=== PATIENT | male | born 1985 | race Caucasian/White ===

== ENCOUNTER 2018-01-06 10:07 | Emergency (ER) | payer BC ==
--- NOTE | 2018-01-06 10:15 | ED ---
Neurological HPI - HPI Summary HPI Summary: This pt is a 32 y/o male presenting to [facility] via EMS, accompanied by his school librarian Baudilio, for a witnessed seizure today. 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 Principal notes that students reported pt fell backwards against the wall with a head strike. EMS reports pt was unresponsive for a little bit and was postictal upon their arrival to the scene. EMS notes the pt does not remember his seizure and the last thing he remembers is teaching. Pt currently c/o lower back pain, sore neck, SOB, and tight chest. He states he feels like he "can't take a full breath." Additionally notes he feels like "I just ran a marathon." Denies head pain. The last time he had a seizure was a few years ago in front of a class in [place], [place]. He sustained 3 herniated discs at that time but did not have surgery. PMHx includes seizures x2, panic disorder, herniated discs, asthma as a child. Denies hx of HTN, but does not his blood pressure increases when he is nervous. He currently has no PCP. Pt takes Klonapin PRN for panic attacks. Allergic to Sulfa and prednisone (reaction is facial swelling and this was noticed the first time he had a seizure). Vital signs while in room: HR is 1252 bpm, BP 173/117, O2 sat is 98. Home Medications Medication Instructions Recorded Confirmed Type Venlafaxine EXT RELEASE CAP* 225 mg PO DAILY 01/06/18 01/06/18 History [Effexor Xr CAP*] clonazePAM TAB(*) [KlonoPIN TAB(*)] 0.5 mg PO BID 01/06/18 01/06/18 History - History of Current Complaint Stated Complaint: SEIZURE Hx Obtained From: Patient, EMS, Other: - school librarian, Baudilio Onset/Duration: Sudden Onset, Resolved Timing: Sudden Onset Current Severity: Moderate - lower back pain Number of Seizures: 1 Neurological Deficit Location: Generalized Character: Other: - seizure Seizure Character: Generalized Aggravating: Nothing Alleviating: Nothing Associated Signs and Symptoms: Positive: Loss of Consciousness, Seizure, Pain - lower back pain, Neck Pain/Stiffness - sore neck, Chest Pain - chest tightness, Shortness of Breath. Negative: Headache, Nausea/Vomiting, Fever Related Hx: Seizure - Allergy/Home Medications Allergies/Adverse Reactions: Allergies Allergy/AdvReac Type Severity Reaction Status Date / Time prednisone Allergy Itching Verified 01/06/18 11:04 Sulfa (Sulfonamide Allergy Rash Verified 01/06/18 11:04 Antibiotics) PMH/Surg Hx/FS Hx/Imm Hx Endocrine/Hematology History: Denies: Hx Diabetes Cardiovascular History: Denies: Hx Hypertension Musculoskeletal History: Reports: Other Musculoskeletal History - bulging spinal discs Neurological History: Reports: Hx Seizures Psychiatric History: Reports: Hx Panic Disorder - Surgical History Surgery Procedure, Year, and Place: none - Family History Known Family History: Positive: Hypertension - Mother with HTN Family History: Paternal uncle with sz - Social History Alcohol Use: Occasionally - Socially Substance Use Type: Reports: None Smoking Status (MU): Never Smoked Tobacco Review of Systems Negative: Fever, Chills Cardiovascular: Other - chest is tight Positive: Shortness Of Breath Musculoskeletal: Other - back pain, sore neck Neurological: Other - POS: seizure. NEG: head pain Negative: Headache All Other Systems Reviewed And Are Negative: Yes Physical Exam - Summary Physical Exam Summary: Appearance: Well-appearing, moderate pain distress, well-nourished Skin: Warm, color reflects adequate perfusion, dry Head: Normal Head/Face inspection, atraumatic Eyes: Conjunctiva clear. Pinpoint pupils. ENT: Normal inspection Neck: Supple, no nodes, no JVD Respiratory: Lungs clear, normal breath sounds, no respiratory distress Cardio: Tachycardic, No murmur, pulses normal, brisk capillary refill Abdomen: Soft, nontender Bowel sounds: Present Musculoskeletal: Strength Intact/ROM intact, no calf tenderness, no edema. Psychological: Normal Neuro: A&Ox3, CN II-XII intact, motor function 5/5, sensation intact, cerebellar normal Triage Information Reviewed: Yes Vital Signs On Initial Exam: Initial Vitals Temp Pulse Resp BP Pulse Ox 98.5 F 130 18 173/117 98 01/06/18 10:09 01/06/18 10:09 01/06/18 10:09 01/06/18 10:01/06/18 10:09 Vital Signs Reviewed: Yes Diagnostics - Laboratory Result Diagrams: 01/06/18 10:29 01/06/18 10:29 Lab Statement: Any lab studies that have been ordered have been reviewed, and results considered in the medical decision making process. - Radiology Chest XR Xray Interpretation: No Acute Changes - IMPRESSION: No active cardiopulmonary disease is noted. Dr. Rolon has reviewed this report. Radiology Interpretation Completed By: Radiologist - CT Brain CT CT Interpretation: No Acute Changes - IMPRESSION: No evidence for acute intracranial abnormality. Dr. Rolon has reviewed this report. CT Interpretation Completed By: Radiologist Cervical spine CT CT Interpretation: No Acute Changes - IMPRESSION: Mild degenerative disc disease. No acute osseous injury to the cervical spine. Dr. Rolon has reviewed this report. CT Interpretation Completed By: Radiologist Lumbar spine CT CT Interpretation: Positive (See Comments) - IMPRESSION: 1. Acute/subacute compression fractures of T12 and L1 without osseous retropulsion. 2. Degenerative disc disease with disc bulging along the lower lumbar spine resulting in mild narrowing of central canal at L3-L4 and L4-L5. Dr. Rolon has reviewed this report. CT Interpretation Completed By: Radiologist - EKG 10:28 Cardiac Rate: NL - at 118 bpm EKG Rhythm: Sinus Tachycardia EKG Interpretation: nml AV/IV CT. Borderline QTc 473. Left axis is -7 EKG Comparison: Other - no prior to compare Re-Evaluation - Re-Evaluation First Eval Re-Evaluation Time: 11:40 Change: Unchanged Comment: Pt still with lower back pain. Pending lumbar CT report. Second Eval Re-Evaluation Time: 14:13 Comment: I reviewed the CT results of compression fracture of T12 and L1 without retropulsion with the pt. Third Eval Re-Evaluation Time: 14:57 Change: Unchanged Comment: Pt is still tachycardic. EEG has been completed. Dr. Fisher, neurologist , in with pt. Fourth Eval Re-Evaluation Time: 15:43 Comment: I discussed discharge instructions with the pt. He understands and agrees. Pt reports he would prefer not to take Naproxen. Fifth Eval Re-Evaluation Time: 15:53 Comment: I reviewed with the pt Dr. Fisher's recommendation to not take Tramadol as it will decrease his seizure threshold. Course/Dx - Course Course Of Treatment: Pt medications reviewed this visit. Allergies noted. High blood pressure noted. 32 y/o male, with hx of seizures x2, presents to the ED with a witnessed seizure today. ED provider is aware of lactic acid of 4.2 at 11 :00. Chest XR is negative. Brain CT is negative. Cervical spine CT shows mild degenerative disc disease. Lumbar spine CT reveals acute/subacute compression fractures of T12 and L1 without osseous retropulsion. Consulting Dr. Arita at this time. Hydrating the pt for elevated CK and lactic acid. Evaluating if liver function test abnormalities are new or old. Discussed pt care with Dr. Arita, neurosurgeon, and reports no further evaluation is needed at this time. Pt can follow up as an outpatient and pain control. Dr. Fisher, neurologist, consulted with the pt. Dr. Fisher recommends to decrease Venlafaxine to 150 mg daily and keep Klonopin 0.5 mg BID. Pt has an established appointment with psych in [place] on 01/16/18. Dr. Fisher reports pt has 2 provoking factors, one of them being sleep deprivation. He has placed pt in driving restriction and pt is NOT to drive for 90 days, unless he goes to the [facility] and reports provoking factor. Pt is not to bathe or swim independently either. Dr. Fisher's office will call the pt for a follow up in 3-4 weeks. [15: 52] I spoke with Dr. Fisher, neurologist, who reports pt cannot definitely take Tramadol because it will decrease seizure threshold. - Diagnoses Provider Diagnoses: Seizure, Compression fracture of T12 vertebra, Compression fracture of L1 lumbar vertebra, Elevated lactic acid level, Elevated liver function tests, Elevated CK, Elevated blood pressure reading without diagnosis of hypertension - Physician Notifications Discussed Care Of Patient With: Thony Arita Time Discussed With Above Provider: 13:00 Instructed by Provider To: Other - Discussed pt care with Dr. Arita, neurosurgeon, and reports no further evaluation is needed at this time. Pt can follow up as an outpatient and pain control. [13:05] I discussed with Dr. Fisher , neurologist, who recommends EEG and he will evaluate the pt in the ED Discharge - Sign-Out/Discharge Documenting (check all that apply): Patient Departure - Discharge to home - Discharge Plan Condition: Stable Disposition: HOME Prescriptions: Naproxen [Naprosyn 500 mg tab] 500 mg PO BID PRN #30 tablet PRN Reason: Pain Patient Education Materials: Vertebral Compression Fracture (ED), Epilepsy (ED) Forms: *Gen. Provider Communication Referrals: [facility] [Outside] [facility] [Outside] Jose F Fisher MD [Medical Doctor] - 2 Weeks Thony Arita MD [Medical Doctor] - 1 Week Additional Instructions: We have given you a copy of your labs and Chest xray and CT studies. You will need definite follow up regarding your elevated liver function tests. You should avoid alcohol until these enzymes are re-tested. You also will need definite follow up with neurology. They will contact you with an appointment in 2-4 weeks. YOU MY NOT DRIVE FOR 90 DAYS. YOU ALSO MAY NOT BATHE OR SWIM ALONE FOR [address] Fisher is the neurologist, and he wants you to decrease your Venlafaxine to 150mg daily. He does not recommend anti-seizure medications at this time. He also wants you to take your klonopin 0.5mg daily. Keep your appointment with psychiatry in [place] on 01/16/18, and bring the labs and xrays and these discharge papers to that appointment. You will also need definite follow up with Dr. Arita for your compression fractures. We have prescribed naproxen that you should take twice a day for your pain. Avoid tylenol (acetaminophen) while your liver enzymes are elevated. DR FISHER DEFINITELY DOES NOT WANT YOU TO TAKE TRAMADOL (ULTRAM) BECAUSE IT WILL LOWER YOUR SEIZURE THRESHHOLD. You need to call our care connections clinic of [facility] to have follow up this week , until you get established with a primary care doctor in this area. They will help with re-checking your liver enzymes and pain control and coordinating your appointments and follow up. Call the physician referral number to get established with a primary care provider. Return to the ER if you have any new or worsening symptoms. - Attestation Statements Document Initiated by Kaminiibjens: Yes Documenting Scribe: Violeta Aguiar Provider For Whom Dimple is Documenting (Include Credential): Dr. Kaila Rolon MD Scribe Attestation: Violeta Simmons, scribed for Dr. Kaila Rolon MD on 01/06/18 at 1552.
[2018-01-06] MEDS ORDERED: NS 0.9% 1000 ML* 2,000 ML IV SCH (10:30)
[2018-01-06] MEDS ORDERED: Ketorolac INJ* 30 MG/ML 1 ML VIAL IV PUSH ONE (10:37)
[2018-01-06 10:39] LABS: ABS Basophils 0 10^3/ul (0-0.2); ABS Eosinophils 0.2 10^3/ul (0-0.6); ABS Lymphocytes 1.5 10^3/ul (1.0-4.8); ABS Monocytes 0.3 10^3/ul (0-0.8); ABS Neutrophils 3.1 10^3/ul (1.5-7.7); ABS Nucleated RBC 0 10^3/ul; Hematocrit 38 % (42-52); Hemoglobin 13.1 g/dl (14.0-18.0); Lymphocyte % 29.8 % (25-47); Mean Corpuscular HGB Conc 34 g/dl (31-36); Mean Corpuscular Hemoglobin 29 pg (27-31); Mean Corpuscular Volume 86 fL (80-94); Mean Platelet Volume 7.4 um3 (7.4-10.4); Nucleated Red Blood Cells % 0.6; Platelet Count 175 10^3/ul (150-450); Red Blood Count 4.44 10^6/ul (4.00-5.40); Red Cell Distribution Width 14 % (10.5-15); White Blood Count 5.1 10^3/ul (3.5-10.8)
[2018-01-06 10:46] LABS: INR 0.91 (0.77-1.02)
[2018-01-06 10:54] LABS: EGFR Non-African American 73.4 (>60)
--- NOTE | 2018-01-06 11:09 | RAD ---
INDICATION: Seizure, head injury. COMPARISON: There are no relevant prior studies available for comparison. TECHNIQUE: Contiguous axial sections of the brain were obtained from the skull base to the vertex without contrast. FINDINGS: The ventricles, cisterns and sulci are within normal limits. No significant focal abnormality or mass effect is seen. There is no evidence for hemorrhage. No significant focal osseous abnormality is seen. The visualized portion of the paranasal sinuses and mastoid air cells appear clear. IMPRESSION: NO EVIDENCE FOR ACUTE INTRACRANIAL ABNORMALITY.
--- NOTE | 2018-01-06 11:10 | RAD ---
HISTORY: seizure, struck head, pain COMPARISONS: None TECHNIQUE: Multiple contiguous axial CT scans were obtained of the cervical spine without intravenous contrast, with coronal and sagittal multiplanar reformations. FINDINGS: BRAIN: The visualized brain is unremarkable CENTRAL CANAL: Evaluation of the central canal is limited on CT technique; however, there is no obvious canalicular mass or epidural hemorrhage. ALIGNMENT: The alignment is normal, without subluxation or dislocation. VERTEBRAL BODIES: The odontoid process is intact. The atlantoaxial intervals are symmetric. The vertebral bodies are normal in attenuation, without fracture. JOINTS: There is no subluxation or dislocation. MUSCULATURE: Unremarkable INTERVERTEBRAL DISCS: There is mild diffuse loss of intervertebral disc height. AXIAL IMAGES: C2-C3: There is no osseous neural foraminal narrowing or central canal stenosis. C3-C4: There is no osseous neural foraminal narrowing or central canal stenosis. C4-C5: There is no osseous neural foraminal narrowing or central canal stenosis. C5-C6: There is no osseous neural foraminal narrowing or central canal stenosis. C6-C7: There is no osseous neural foraminal narrowing or central canal stenosis. C7-T1: There is no osseous neural foraminal narrowing or central canal stenosis. SOFT TISSUES: The visualized soft tissues of the neck are unremarkable. The prevertebral fat stripe is preserved. OTHER: None. IMPRESSION: MILD DEGENERATIVE DISC DISEASE. NO ACUTE OSSEOUS INJURY TO THE CERVICAL SPINE.
--- NOTE | 2018-01-06 11:12 | RAD ---
HISTORY: pain s/p seizure fall this am,hx herniated discs COMPARISONS: None TECHNIQUE: Multiple contiguous axial CT scans were obtained of the lumbar spine without intravenous contrast, with coronal and sagittal multiplanar reformations. The bones FINDINGS: SPINAL CANAL: Evaluation of the central canal is limited on CT technique; however, there is no obvious canalicular mass or epidural hemorrhage. ALIGNMENT: The alignment is normal. VERTEBRAL BODIES: There is mild depression of the superior endplates of T12 and L1 with linear high attenuation and suggestive of acute/subacute compression fractures without osseous retropulsion. JOINTS: There is no subluxation or dislocation. MUSCULATURE: Unremarkable INTERVERTEBRAL DISCS: There is mild diffuse loss of intervertebral disc height throughout the spine. AXIAL IMAGES: T12-L1: There is no osseous neural foraminal narrowing or central canal stenosis. L1-L2: There is no osseous neural foraminal narrowing or central canal stenosis. L2-L3: There is no osseous neural foraminal narrowing or central canal stenosis. L3-L4: There is a broad-based disc bulge. There is mild narrowing of the central canal. L4-L5: There is a broad-based disc bulge with mild narrowing of the central canal. L5-S1: There is a broad-based disc bulge with the probable central disc protrusion. There is no osseous neural foraminal narrowing or central canal stenosis. SOFT TISSUES: The visualized soft tissues of the abdomen are unremarkable. OTHER: None IMPRESSION: 1. ACUTE/SUBACUTE COMPRESSION FRACTURES OF T12 AND L1 WITHOUT OSSEOUS RETROPULSION. 2. DEGENERATIVE DISC DISEASE WITH DISC BULGING ALONG THE LOWER LUMBAR SPINE RESULTING IN MILD NARROWING OF CENTRAL CANAL AT L3-L4 AND L4-L5.
--- NOTE | 2018-01-06 11:34 | RAD ---
Indication: Shortness of breath. Single frontal view of the chest performed at 1120 hours was reviewed. No prior study is available for comparison. No mediastinal shift is noted. Heart is of normal size and configuration. Lung roche appear clear. IMPRESSION: NO ACTIVE CARDIOPULMONARY DISEASE IS NOTED.
[2018-01-06 16:02] VITALS: BP 149/93
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
--- NOTE | 2018-01-07 11:19 | EEG ---
ELECTROENCEPHALOGRAPHY: DATE OF SERVICE: 01/06/18 DATE READ: 01/06/18 REFERRING PHYSICIAN: Dr. Kaila Rolon. DURATION OF STUDY: 1418 - 1438. MEDICATIONS: 1. Venlafaxine 225 mg. 2. Klonopin. 3. Toradol. 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 This EEG was obtained to evaluate for epileptiform abnorm alities. CLINICAL STATE: Awake. REPORT: The waking background showed appropriate organization with clearly defined anterior-posterio r voltage and frequency gradients. There was a well-defined posterior dominant rhythm of 9 Hz, which was symmetrical and showed normal reactivity. Anteriorly, there was an expected pattern of lower vo ltage, irregular, mixed faster frequency. Hyperventilation and photic stimulation were not performed . Throughout the recording, there were no epileptiform abnormalities. CLINICAL IMPRESSION: This is a normal waking EEG. There were no epileptiform abnormalities. A norm al interictal EEG does not exclude nor support the diagnosis of epilepsy. Clinical correlation is re commended. [id number]/[facility] #: [id number]
== END 2018-01-06 16:01 | disposition home or self-care (01) ==
LOC: ED 10:07
DX: R56.9 Unspecified convulsions (principal); S22.089A Unspecified fracture of T11-T12 vertebra, initial encounter for closed fracture; S32.019A Unspecified fracture of first lumbar vertebra, initial encounter for closed fracture; M54.5 Low back pain; R55 Syncope and collapse; R03.0 Elevated blood-pressure reading, without diagnosis of hypertension; R79.89 Other specified abnormal findings of blood chemistry; X58.XXXA Exposure to other specified factors, initial encounter; Y92.9 Unspecified place or not applicable
CPT/HCPCS: 36415; 70450; 71045; 72125; 72131; 80053; 80074; 80320; 82550; 83605; 83735; 84443; 84484; 85025; 85610; 85730; 93005; 95816; 96374; 99283; G0480; J1885

== ENCOUNTER 2018-08-13 15:14 | Emergency (ER) | payer BC ==
--- NOTE | 2018-08-13 20:19 | ED ---
Lower Extremity - HPI Summary HPI Summary: This patient is a 32 year old M presenting to [facility] with a chief complaint of bilateral pain, redness and swelling from the toes to the ankles, associated with gout for the past week and a half. Symptoms spread from his toes to his ankles. He reports recent inability to walk a few days ago due to pain that is currently resolved. Pain rated 7/10 upon triage. Patient denies CP, SOB, abdominal, and nausea. Denies known recent tick bites. Patient has seen his PCP for these symptoms who provided Naproxen, that has not provided any relief. Recent lab work reviewed, revealing elevated Uric acid levels. Medications include lamictal, Effexor, clonazepam. - History of Current Complaint Chief Complaint: EDGeneral Stated Complaint: RT FT SWELLING AND PAIN PER PT Time Seen by Provider: 08/13/18 20:09 Hx Obtained From: Patient Mechanism Of Injury: Unknown Onset/Duration: Weeks Pain Intensity: 7 Pain Scale Used: 0-10 Numeric Timing: Constant Location: Is Discrete @ - bilateral toes to ankles Associated Signs And Symptoms: Positive: Swelling, Redness. Negative: Fever Aggravating Factor(s): Standing, Ambulation Able to Bear Weight: Yes - Allergies/Home Medications Allergies/Adverse Reactions: Allergies Allergy/AdvReac Type Severity Reaction Status Date / Time amoxicillin [From Augmentin] Allergy Unknown Verified 08/13/18 15:41 Reaction Details clavulanic acid Allergy Unknown Verified 08/13/18 15:41 [From Augmentin] Reaction Details prednisone Allergy Itching Verified 08/13/18 15:41 Sulfa (Sulfonamide Allergy Rash Verified 08/13/18 15:41 Antibiotics) Home Medications: Home Medications Naproxen [Naprosyn 500 mg tab] 500 mg PO BID 08/13/18 [History Confirmed ] Venlafaxine EXT RELEASE CAP* [Effexor Xr CAP*] 225 mg PO DAILY 08/13/18 [ History Confirmed 08/13/18] Zolpidem TAB* [Ambien*] 5 - 10 mg PO BEDTIME PRN 08/13/18 [History Confirmed ] clonazePAM TAB(*) [Klonopin TAB(*)] 1 mg PO TID PRN 08/13/18 [History Confirmed 08/13/18] lamoTRIgine TAB(*) [Lamictal TAB(*)] 50 mg PO DAILY 08/13/18 [History Confirmed 08/13/18] PMH/Surg Hx/FS Hx/Imm Hx Endocrine/Hematology History: Denies: Hx Diabetes Cardiovascular History: Denies: Hx Hypertension, Hx Pacemaker/ICD History: Denies: Hx Renal Disease Musculoskeletal History: Reports: Other Musculoskeletal History - bulging spinal discs Sensory History: Denies: Hx Hearing Aid Neurological History: Reports: Hx Seizures Psychiatric History: Reports: Hx Panic Disorder - Surgical History Surgery Procedure, Year, and Place: none Infectious Disease History: No Infectious Disease History: Denies: Traveled Outside the [place] in Last 30 Days - Family History Known Family History: Positive: Hypertension - Mother with HTN Family History: Paternal uncle with sz - Social History Alcohol Use: Occasionally - Socially Hx Substance Use: No Substance Use Type: Reports: None Smoking Status (MU): Never Smoked Tobacco Review of Systems Negative: Chest Pain Negative: Shortness Of Breath Negative: Abdominal Pain, Nausea Positive: Myalgia, Decreased ROM, Edema All Other Systems Reviewed And Are Negative: Yes Physical Exam - Summary Physical Exam Summary: Appearance: well appearing, no pain distress Skin: warm, dry, reflects adequate perfusion Head/face: normal Eyes: EOMI, EM[place] ENT: mucous membranes moist Neck: supple, non-tender Respiratory: CTA, breath sounds present Cardiovascular: RRR, pulses symmetrical Abdomen: non-tender, soft Bowel Sounds: present Musculoskeletal: erythema and pitting edema of the right ankle, limited plantarflexion of the right due to pain Neuro: normal, sensory motor intact, A&Ox3 Triage Information Reviewed: Yes Vital Signs On Initial Exam: Initial Vitals Temp Pulse Resp BP Pulse Ox 97.1 F 98 16 126/78 99 08/13/18 15:21 08/13/18 15:21 08/13/18 15:21 08/13/18 15:21 08/13/18 15:21 Vital Signs Reviewed: Yes Diagnostics - Vital Signs Vital Signs Temp Pulse Resp BP Pulse Ox 08/13/18 18:06 97.2 F 80 16 114/79 97 08/13/18 15:21 97.1 F 98 16 126/78 99 - Laboratory Lab Statement: Any lab studies that have been ordered have been reviewed, and results considered in the medical decision making process. Lower Extremity Course/Dx - Course Course Of Treatment: Nurse's notes reviewed. Patient recently diagnosed with hyperuricemic gout that began in both toes. He now is experiencing pain and redness in the right ankle also with some swelling. He is only on Naprosyn. He was given 1.2 mg of colchicine here and Decadron. Uric acid on recent labs was high. He will follow up closely with his primary care physician and continue colchicine. - Diagnoses Differential Diagnosis/HQI/PQRI: Positive: Arthritis, Gout, Infection Provider Diagnoses: Gouty arthritis Discharge - Sign-Out/Discharge Documenting (check all that apply): Patient Departure - discharge Patient Received Moderate/Deep Sedation with Procedure: No - Discharge Plan Condition: Stable Disposition: HOME Prescriptions: Colchicine* [Colcrys*] 0.6 mg PO TID PRN #12 tab PRN Reason: gout pain Patient Education Materials: Gout (ED) Referrals: Leti Hdz [employer]PERVISOR [Primary Care Provider] - Additional Instructions: Rest, ice, elevate and Martínez wrap for swelling. Continue Naprosyn. HEENT with it. Stop colchicine if you develop diarrhea. Call your doctor first thing tomorrow to schedule prompt follow-up. Return if worse, new symptoms or other concerns. - Billing Disposition and Condition Condition: STABLE Disposition: Home - Attestation Statements Document Initiated by Kaminiibe: Yes Documenting Scribe: Sarah العلي Provider For Whom Dimple is Documenting (Include Credential): Mark Vee MD Scribe Attestation: ISarah, scribed for Mark Vee MD on 08/14/18 at 0326. Scribe Documentation Reviewed: Yes Provider Attestation: The documentation as recorded by the Sarah morejon accurately reflects the service I personally performed and the decisions made by me, Mark Vee MD Status of Scribjens Document: Viewed
[2018-08-13] MEDS ORDERED: Dexamethasone IV* 4 MG/ML 1 ML (4 MG) IM ONE (20:26)
[2018-08-13] MEDS ORDERED: Colchicine* 0.6 MG TAB PO ONE (20:35)
[2018-08-13 20:55] VITALS: BP 120/83
[2018-08-14] MEDS ORDERED: Colchicine* 0.6 MG TAB PO ONE (20:21)
[2018-08-16 00:13] LABS: B garinii/B afzelii PCR Negative (Negative); B mayonii PCR Negative (Negative)
== END 2018-08-13 20:54 | disposition home or self-care (01) ==
LOC: ED 15:14
DX: M10.9 Gout, unspecified (principal)
CPT/HCPCS: 87476; 87798; 96372; 99283; J1100

== ENCOUNTER 2018-12-28 10:28 | Emergency (ER) | payer BC ==
[2018-12-28] MEDS ORDERED: Ketorolac *IM* INJ* 60 MG/2 ML VIAL IM ONE (11:02)
--- NOTE | 2018-12-28 11:06 | ED ---
Lower Extremity - HPI Summary HPI Summary: This pt is a 33 Y/O M presenting to [facility] with a CC of R ankle pain that is currently rated a 10/10 and started on 12/26/18. 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 He states that his family has a Hx of Lupus and Gout and is worried that he might have a flare up of that. He states that he is currently out of it, has been sweating while sleeping, and has been unable to ambulate. He states that he cannot walk or move his ankle without an intense increase in pain. He states that the pain feels like someone is trying to saw my R foot off. He has no alleviating factors. Patient did take his colchicine at home for his gout with some relief. Medications reviewed - History of Current Complaint Chief Complaint: EDExtremityLower Stated Complaint: POSS BLOOD CLOT IN RIGHT LEG PER PT Time Seen by Provider: 12/28/18 10:51 Hx Obtained From: Patient Mechanism Of Injury: Other - none Onset of Pain: Immediate Onset/Duration: Still Present - 2 Severity Initially: Severe Severity Currently: Severe Pain Intensity: 10 Pain Scale Used: 0-10 Numeric Timing: Constant Location: Is Discrete @ - R ankle, R calf tightness Character Of Pain: Sharp Associated Signs And Symptoms: Positive: Negative - headaches, penile discharge , N/V, SOB, CP, and chills., Other - POSITIVE: R ankle tenderness, decreased ROM due to pain. Negative: Fever Aggravating Factor(s): Standing, Ambulation, Weight Bearing Alleviating Factor(s): Nothing Able to Bear Weight: No - Pt stated that he has been crawling around his house - Allergies/Home Medications Allergies/Adverse Reactions: Allergies Allergy/AdvReac Type Severity Reaction Status Date / Time amoxicillin [From Augmentin] Allergy Unknown Verified 12/28/18 10:48 Reaction Details clavulanic acid Allergy Unknown Verified 12/28/18 10:48 [From Augmentin] Reaction Details prednisone Allergy Itching Verified 12/28/18 10:48 Sulfa (Sulfonamide Allergy Rash Verified 12/28/18 10:48 Antibiotics) PMH/Surg Hx/FS Hx/Imm Hx Previously Healthy: Yes Endocrine/Hematology History: Denies: Hx Diabetes Cardiovascular History: Denies: Hx Hypertension, Hx Pacemaker/ICD History: Denies: Hx Renal Disease Musculoskeletal History: Reports: Other Musculoskeletal History - bulging spinal discs Sensory History: Denies: Hx Hearing Aid Neurological History: Reports: Hx Seizures Psychiatric History: Reports: Hx Panic Disorder - Surgical History Surgical History: None Surgery Procedure, Year, and Place: none Infectious Disease History: No Infectious Disease History: Denies: Traveled Outside the [place] in Last 30 Days - Family History Known Family History: Positive: Hypertension - Mother with HTN, Blood Disorder - Gout, Lupus Family History: Paternal uncle with sz - Social History Occupation: Employed Full-time Lives: With Family Alcohol Use: Occasionally - Socially Hx Substance Use: No Substance Use Type: Reports: None Hx Tobacco Use: No Smoking Status (MU): Never Smoked Tobacco Review of Systems Negative: Fever, Chills Negative: Chest Pain Negative: Shortness Of Breath Negative: Vomiting, Nausea Negative: discharge Positive: Decreased ROM - R ankle , Other - R ankle and calf pain Negative: Headache All Other Systems Reviewed And Are Negative: Yes Physical Exam - Summary Physical Exam Summary: Constitutional: Well-developed, Well-nourished, Alert. (-) Distressed Skin: Warm, Dry HENT: Normocephalic; Atraumatic Eyes: Conjunctiva normal Neck: Musculoskeletal ROM normal neck. (-) JVD, (-) Stridor, (-) Tracheal deviation Cardio: Rhythm regular, rate normal, Heart sounds normal; Intact distal pulses; The pedal pulses are 2+ and symmetric. Radial pulses are 2+ and symmetric. (-) Murmur Pulmonary/Chest wall: Effort normal. (-) Respiratory distress, (-) Wheezes, (-) Rales Abd: Soft, (-) tenderness, (-) Distension, (-) Guarding, (-) Rebound Musculoskeletal: (-) Edema, R ankle is swollen with no red or warmth, can move his ankle but is limited, Negative tompson test, DP/RP 2+ Lymph: (-) Cervical adenopathy Neuro: Alert, Oriented x3 Psych: Mood and affect Normal Triage Information Reviewed: Yes Vital Signs On Initial Exam: Initial Vitals Temp Pulse Resp BP Pulse Ox 98.3 F 100 16 160/96 99 12/28/18 10:43 12/28/18 10:43 12/28/18 10:43 12/28/18 10:43 12/28/18 10:43 Vital Signs Reviewed: Yes Diagnostics - Vital Signs Vital Signs Temp Pulse Resp BP Pulse Ox 12/28/18 10:43 98.3 F 100 16 160/96 99 - Laboratory Result Diagrams: 12/28/18 11:27 12/28/18 11:27 Lab Statement: Any lab studies that have been ordered have been reviewed, and results considered in the medical decision making process. - Radiology Ankle X-Ray Radiology Interpretation Completed By: Radiologist Summary of Radiographic Findings: NO RADIOGRAPHICALLY APPARENT ACUTE ABNORMALITY OF THE RIGHT ANKLE. ED physician has reviewed this report. Re-Evaluation - Re-Evaluation First Eval Re-Evaluation Time: 12:11 Comment: Offered US even though I do not believe it is a DVT. The pt declined. He states that he is feeling much better after the IM toradol. Lower Extremity Course/Dx - Course Course Of Treatment: Patient is here with pain, swelling at the right ankle. Patient has a history of gout with a high uric acid level here. Patient has a normal white count. Patient is able to range his ankle making septic arthritis unlikely. Patient was given a shot of IM Toradol with vast improvement in symptoms. Patient does not have any swelling or pain in his calf. Patient was given a dose of Decadron here and discharged with a dose for tomorrow. Patient was encouraged to start taking Motrin every 6 hours. - Diagnoses Provider Diagnoses: Gout Discharge ED - Sign-Out/Discharge Documenting (check all that apply): Patient Departure - discharge Patient Received Moderate/Deep Sedation with Procedure: No - Discharge Plan Condition: Stable Disposition: HOME Prescriptions: Dexamethasone TAB* [Decadron TAB*] 4 mg PO ONCE #3 tab Patient Education Materials: Crutch Instructions (ED), Gout (ED) Referrals: Leti Hdz NP [Primary Care Provider] - 2 Days Additional Instructions: 600 mgs Ibuprofen every 6 hours. Return to the emergency department for any new or worsening symptoms. Follow up with your primary care provider in 1-3 days. Use crutches as needed for mobility purposes. Take the prescribed medication as directed. - Billing Disposition and Condition Condition: STABLE Disposition: Home - Attestation Statements Document Initiated by Scribe: Yes Documenting Scribe: Archie Patino Provider For Whom Scribe is Documenting (Include Credential): Mariano Ann MD Scribe Attestation: Archie Simmons, scribed for Mariano Ann MD on 12/28/18 at 1222. Scribe Documentation Reviewed: Yes Provider Attestation: The documentation as recorded by the albertoibArchie colindres accurately reflects the service I personally performed and the decisions made by me, Mariano Ann MD Status of Scribe Document: Viewed
[2018-12-28 11:35] LABS: ABS Eosinophils 0.1 10^3/ul (0-0.6); ABS Lymphocytes 1.8 10^3/ul (1.0-4.8); ABS Neutrophils 3.5 10^3/ul (1.5-7.7); Eosinophil % 1.2 %; Hematocrit 37 % (42-52); Hemoglobin 12.5 g/dL (14.0-18.0); Lymphocyte % 28.5 %; Mean Corpuscular HGB Conc 34 g/dL (31-36); Mean Corpuscular Hemoglobin 30 pg (27-31); Mean Corpuscular Volume 88 fL (80-94); Mean Platelet Volume 6.9 fL (7.4-10.4); Nucleated Red Blood Cells % 0.1; Platelet Count 151 10^3/uL (150-450); Red Blood Count 4.16 10^6 /uL (4.18-5.48); Red Cell Distribution Width 16 % (10-15); White Blood Count 6.4 10^3/uL (3.5-10.8)
[2018-12-28 11:51] LABS: Albumin 4.4 g/dL (3.2-5.2); Albumin/Globulin Ratio 1.7 (1-3); BUN/Creatinine Ratio 9.1 (8-20); C Reactive Protein 69.46 mg/L (<8.01); EGFR Non-African American 87.6 (>60); Globulin 2.6 g/dL (2-4); Potassium 3.6 mmol/L (3.5-5.0); Total Bilirubin 1.5 mg/dL (0.2-1.0); Uric Acid 9.3 mg/dL (4.4-7.6)
[2018-12-28] MEDS ORDERED: Dexamethasone TAB* 4 MG PO ONE (12:11)
[2018-12-28 12:29] VITALS: BP 161/105
[2018-12-28 12:56] LABS: Erythrocyte Sed Rate 31 mm/Hr (0-14)
== END 2018-12-28 12:27 | disposition home or self-care (01) ==
LOC: ED 10:28
DX: M10.071 Idiopathic gout, right ankle and foot (principal); Z88.1 Allergy status to other antibiotic agents; Z88.0 Allergy status to penicillin; Z88.2 Allergy status to sulfonamides; Z88.8 Allergy status to other drugs, medicaments and biological substances
CPT/HCPCS: 36415; 80053; 84550; 85025; 85652; 86140; 96372; 99282; J1885; J8540

== ENCOUNTER 2019-02-12 15:35 | Emergency (ER) | payer BC ==
[2019-02-12 16:16] LABS: ABS Lymphocytes 0.5 10^3/ul (1.0-4.8); ABS Monocytes 0.3 10^3/ul (0-0.8); ABS Neutrophils 3.9 10^3/ul (1.5-7.7); Eosinophil % 0.1 %; Hematocrit 34 % (42-52); Hemoglobin 11.8 g/dL (14.0-18.0); Mean Corpuscular HGB Conc 35 g/dL (31-36); Mean Corpuscular Hemoglobin 32 pg (27-31); Mean Corpuscular Volume 91 fL (80-94); Mean Platelet Volume 7.4 fL (7.4-10.4); Nucleated Red Blood Cells % 0.1; Platelet Count 197 10^3/uL (150-450); Red Blood Count 3.74 10^6 /uL (4.18-5.48); Red Cell Distribution Width 16 % (10-15); White Blood Count 4.8 10^3/uL (3.5-10.8)
[2019-02-12] MEDS ORDERED: NS 0.9% 1000 ML** 1,000 ML IV ONE (16:19)
[2019-02-12 16:37] LABS: INR 1.09 (0.82-1.09)
[2019-02-12 16:39] LABS: ALT 97 U/L (7-52); AST 77 U/L (13-39); Albumin 4.7 g/dL (3.2-5.2); Albumin/Globulin Ratio 1.7 (1-3); Alkaline Phosphatase 78 U/L (34-104); Anion Gap 9 mmol/L (2-11); BUN/Creatinine Ratio 10.1 (8-20); Blood Urea Nitrogen 7 mg/dL (6-24); CO2 Carbon Dioxide 27 mmol/L (22-32); Calcium 9.9 mg/dL (8.6-10.3); Chloride 104 mmol/L (101-111); EGFR African American 160.8 (>60); EGFR Non-African American 132.9 (>60); Globulin 2.8 g/dL (2-4); Glucose 110 mg/dL (70-100); Magnesium 2.2 mg/dL (1.9-2.7); Potassium 4.2 mmol/L (3.5-5.0); Sodium 140 mmol/L (135-145); Total Protein 7.5 g/dL (6.4-8.9)
[2019-02-12 17:08] LABS: Alcohol < 10 mg/dL (<10)
[2019-02-12 17:19] LABS: Urine Appearance Clear; Urine Bilirubin Negative (Negative); Urine Blood Negative (Negative); Urine Color Yellow; Urine Glucose Negative (Negative); Urine Ketones Trace (Negative); Urine Nitrite Negative (Negative); Urine Protein Negative (Negative); Urine Specific Gravity 1.005 (1.010-1.030); Urine Urobilinogen Negative (Negative)
[2019-02-12 17:37] LABS: Creatine Kinase 111 U/L (10-223)
[2019-02-12 17:38] LABS: Urine Benzodiazepine Screen Presumptive Positive (None Detect); Urine Opiates Screen None Detected (None Detect)
[2019-02-12] MEDS ORDERED: carBAMazepine TAB(*) 200 MG PO ONE (17:52)
--- NOTE | 2019-02-12 18:03 | ED ---
Seizure - HPI Summary HPI Summary: Pt presents to the ED by way of EMS with altered mental status. Per EMS and staff at [facility], patient had passed out in the classroom and subsequently had CPR, however this is unclear if this really happened. Patient does remember having CPR, but by a child for only approximately 20 seconds. It does not appear that EMS did CPR. Patient denies any drug or alcohol use. Pt states he has been under a fair amount of stress recently, has had this happen in the past when he has been under stress. He states he recalls the entire incident, but does not give full details as pt is extremely confused and appears fatigued. Denies any physical sxs other than fatigue. He states he knows when he is about to have a seizure, although has "only had 2 in my life." Does not feel this was a seizure. Pt is very tangential. Unable to give a good history. When asked about his seizure hx, he replied "I don't have seizures." Hx of 2010 seizure and 2018 seizure. Hx: Seizures, anxiety, elevated liver enzymes. Neurologist is Dr Mtz/Fausto Oneill, [employer], last seen 2 mos ago Pt unwilling to increase dose of Lamotrigine d/t side effects: feeling my cell count gets higher and I need dexamethasone to control it. Medications include Klonopin 3 times daily, Lamotrigine 50 mg once daily and Effexor 225mg - History Of Current Complaint Chief Complaint: EDSeizure Time Seen by Provider: 02/12/19 15:49 Hx Obtained From: Patient, EMS Hx From Patient Unobtainable Due To: Altered Mental Status Aggravating Factor(s): Sleep Deprivation, Meds Non-compliant Alleviating Factor(s): Spontaneous Resolution Associated Signs And Symptoms: Anxiety, Emotional Distress Related History: Medication Non-Compliant - Risk Factors SAH Risk Factors: Negative Meningitis Risk Factors: Negative SDH Risk Factor: Male, Seizures - Allergies/Home Medications Allergies/Adverse Reactions: Allergies Allergy/AdvReac Type Severity Reaction Status Date / Time amoxicillin [From Augmentin] Allergy Unknown Verified 02/12/19 15:45 Reaction Details clavulanic acid Allergy Unknown Verified 02/12/19 15:45 [From Augmentin] Reaction Details prednisone Allergy Itching Verified 02/12/19 15:45 Sulfa (Sulfonamide Allergy Rash Verified 02/12/19 15:45 Antibiotics) PMH/Surg Hx/FS Hx/Imm Hx Previously Healthy: Yes Endocrine/Hematology History: Denies: Hx Diabetes Cardiovascular History: Denies: Hx Hypertension, Hx Pacemaker/ICD History: Denies: Hx Renal Disease Musculoskeletal History: Reports: Other Musculoskeletal History - bulging spinal discs Sensory History: Denies: Hx Hearing Aid Neurological History: Reports: Hx Seizures Psychiatric History: Reports: Hx Panic Disorder - Surgical History Surgery Procedure, Year, and Place: none - Immunization History Hx Pertussis Vaccination: No Immunizations Up to Date: Yes Infectious Disease History: No Infectious Disease History: Denies: Traveled Outside the [place] in Last 30 Days - Family History Known Family History: Positive: Hypertension - Mother with HTN, Blood Disorder - Gout, Lupus Family History: Paternal uncle with sz - Social History Occupation: Employed Full-time Lives: With Family Alcohol Use: Occasionally Hx Substance Use: No Substance Use Type: Reports: None Hx Tobacco Use: No Smoking Status (MU): Never Smoked Tobacco Review of Systems Constitutional: Negative Negative: Fever, Chills, Fatigue, Skin Diaphoresis Negative: Blurred Vision Negative: Palpitations, Chest Pain Negative: Abdominal Pain, Vomiting, Diarrhea, Nausea Genitourinary: Negative Positive: no symptoms reported, see HPI Negative: Rash, Bruising Positive: Anxious, Depressed, Other - AMS All Other Systems Reviewed And Are Negative: Yes Physical Exam Triage Information Reviewed: Yes Vital Signs On Initial Exam: Initial Vitals Temp Pulse Resp BP Pulse Ox 99.2 F 95 18 170/115 97 02/12/19 15:40 02/12/19 15:40 02/12/19 15:40 02/12/19 15:40 02/12/19 15:40 Completion Of Physical Exam Limited Due To: Altered Mental Status Appearance: Positive: Well-Nourished Skin: Positive: Warm, Skin Color Reflects Adequate Perfusion Eyes: Positive: Conjunctiva Clear, Other: - pupils non-reactive on arrival. re- examination reveals more reative pupils. Nystagmus Neck: Positive: Supple, No Lymphadenopathy Respiratory/Lung Sounds: Positive: Clear to Auscultation Cardiovascular: Positive: RRR, Pulses are Symmetrical in both Upper and Lower Extremities Musculoskeletal: Positive: Normal, Strength/ROM Intact Neurological: Positive: Sensory/Motor Intact, Alert, Oriented to Person Place, Time, CN Intact II-III, Reflexes Intact, Normal Gait, Facial Symmetry, Speech Normal. Negative: Slurred Speech, Finger to Nose Psychiatric: Positive: Other - appears confused, anxious, no HI/SI AVPU Assessment: Alert Procedures - Sedation Patient Received Moderate/Deep Sedation with Procedure: No Diagnostics - Vital Signs Vital Signs Temp Pulse Resp BP Pulse Ox 02/12/19 16:00 92 90 02/12/19 15:52 86 170/117 97 02/12/19 15:40 99.2 F 95 18 170/115 97 - Laboratory Lab Results: Lab Results 02/12/19 02/12/19 02/12/19 Range/Units 16:08 16:08 16:08 WBC 4.8 (3.5-10.8) 10^3/uL RBC 3.74 L (4.18-5.48) 10^6 /uL Hgb 11.8 L (14.0-18.0) g/dL Hct 34 L (42-52) % MCV 91 (80-94) fL MCH 32 H (27-31) pg MCHC 35 (31-36) g/dL RDW 16 H (10-15) % Plt Count 197 (150-450) 10^3/uL MPV 7.4 (7.4-10.4) fL Neut % (Auto) 81.7 % Lymph % (Auto) 11.0 % [place] % (Auto) 7.0 % Eos % (Auto) 0.1 % Baso % (Auto) 0.2 % Absolute Neuts (auto) 3.9 (1.5-7.7) 10^3/ul Absolute Lymphs (auto) 0.5 L (1.0-4.8) 10^3/ul Absolute Monos (auto) 0.3 (0-0.8) 10^3/ul Absolute Eos (auto) 0.0 (0-0.6) 10^3/ul Absolute Basos (auto) 0.0 (0-0.2) 10^3/ul Absolute Nucleated RBC 0.0 10^3/ul Nucleated RBC % 0.1 INR (Anticoag Therapy) 1.09 (0.82-1.09) Sodium 140 (135-145) mmol/L Potassium 4.2 (3.5-5.0) mmol/L Chloride 104 (101-111) mmol/L Carbon Dioxide 27 (22-32) mmol/L Anion Gap 9 (2-11) mmol/L BUN 7 (6-24) mg/dL Creatinine 0.69 (0.67-1.17) mg/dL Est GFR ( Amer) 160.8 (>60) Est GFR (Non-Af Amer) 132.9 (>60) BUN/Creatinine Ratio 10.1 (8-20) Glucose 110 H (70-100) mg/dL Lactic Acid (0.5-2.0) mmol/L Calcium 9.9 (8.6-10.3) mg/dL Magnesium 2.2 (1.9-2.7) mg/dL Total Bilirubin 1.10 H (0.2-1.0) mg/dL AST 77 H (13-39) U/L ALT 97 H (7-52) U/L Alkaline Phosphatase 78 (34-104) U/L Total Creatine Kinase 111 (10-223) U/L Total Protein 7.5 (6.4-8.9) g/dL Albumin 4.7 (3.2-5.2) g/dL Globulin 2.8 (2-4) g/dL Albumin/Globulin Ratio 1.7 (1-3) Urine Color Urine Appearance Urine pH (5-9) Ur Specific [place] (1.010-1.030) Urine Protein (Negative) Urine Ketones (Negative) Urine Blood (Negative) Urine Nitrate (Negative) Urine Bilirubin (Negative) Urine Urobilinogen (Negative) Ur Leukocyte Esterase (Negative) Urine Glucose (Negative) Urine Opiates Screen (None Detect) Ur Barbiturates Screen (None Detect) Ur Phencyclidine Scrn (None Detect) Ur Amphetamines Screen (None Detect) U Benzodiazepines Scrn (None Detect) Urine Cocaine Screen (None Detect) U Cannabinoids Screen (None Detect) Serum Alcohol < 10 (<10) mg/dL 02/12/19 02/12/19 02/12/19 Range/Units 16:08 16:57 16:57 WBC (3.5-10.8) 10^3/uL RBC (4.18-5.48) 10^6 /uL Hgb (14.0-18.0) g/dL Hct (42-52) % MCV (80-94) fL MCH (27-31) pg MCHC (31-36) g/dL RDW (10-15) % Plt Count (150-450) 10^3/uL MPV (7.4-10.4) fL Neut % (Auto) % Lymph % (Auto) % Sherman % (Auto) % Eos % (Auto) % Baso % (Auto) % Absolute Neuts (auto) (1.5-7.7) 10^3/ul Absolute Lymphs (auto) (1.0-4.8) 10^3/ul Absolute Monos (auto) (0-0.8) 10^3/ul Absolute Eos (auto) (0-0.6) 10^3/ul Absolute Basos (auto) (0-0.2) 10^3/ul Absolute Nucleated RBC 10^3/ul Nucleated RBC % INR (Anticoag Therapy) (0.82-1.09) Sodium (135-145) mmol/L Potassium (3.5-5.0) mmol/L Chloride (101-111) mmol/L Carbon Dioxide (22-32) mmol/L Anion Gap (2-11) mmol/L BUN (6-24) mg/dL Creatinine (0.67-1.17) mg/dL Est GFR ( Amer) (>60) Est GFR (Non-Af Amer) (>60) BUN/Creatinine Ratio (8-20) Glucose (70-100) mg/dL Lactic Acid 0.9 (0.5-2.0) mmol/L Calcium (8.6-10.3) mg/dL Magnesium (1.9-2.7) mg/dL Total Bilirubin (0.2-1.0) mg/dL AST (13-39) U/L ALT (7-52) U/L Alkaline Phosphatase (34-104) U/L Total Creatine Kinase (10-223) U/L Total Protein (6.4-8.9) g/dL Albumin (3.2-5.2) g/dL Globulin (2-4) g/dL Albumin/Globulin Ratio (1-3) Urine Color Yellow Urine Appearance Clear Urine pH 6.0 (5-9) Ur Specific [place] 1.005 L (1.010-1.030) Urine Protein Negative (Negative) Urine Ketones Trace A (Negative) Urine Blood Negative (Negative) Urine Nitrate Negative (Negative) Urine Bilirubin Negative (Negative) Urine Urobilinogen Negative (Negative) Ur Leukocyte Esterase Negative (Negative) Urine Glucose Negative (Negative) Urine Opiates Screen None detected (None Detect) Ur Barbiturates Screen None detected (None Detect) Ur Phencyclidine Scrn None detected (None Detect) Ur Amphetamines Screen None detected (None Detect) U Benzodiazepines Scrn Presumptive positive A (None Detect) Urine Cocaine Screen None detected (None Detect) U Cannabinoids Screen None detected (None Detect) Serum Alcohol (<10) mg/dL Result Diagrams: 02/12/19 16:08 02/12/19 16:08 Lab Statement: Any lab studies that have been ordered have been reviewed, and results considered in the medical decision making process. Course/Dx - Course Course Of Treatment: On arrival into the ED, the patient is evaluated for altered mental status. He appears very confused, tangential with his comments and unable to answer direct questions. He appears to be under the influence. Pupils non-reactive, appears dehydrated, heavy eyelids and acting very confused. Per RN and EMS staff he has been talking about random facts but not making sense. 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 Neuro exam WNL except for bilateral nystagmus. Labs obtained which show elevated liver enzymes, AST at 77 and ALT 97 slightly elevated from previous visits. Alcohol negative. Drug screen negative except for Benzos. Pt on Klonopin 3x daily. Brain CT normal. Pt re-examined and appears less confused. He is acting more appropriate and able to answer questions more appropriately. He states he is under stress, causing him to hyperventilate and pass out. But he does admit he recalls the event. Denies LOC. Discussed with Dr. Gonzales who recommends close f/u as outpatient with Dr. Mtz and Fausto Oneill and start Tegretol 200mg BID. Will remain on Lamotrigine for now. It is difficult to discern if this is a post-ictal state from a seizure, or pt was overheated, hyperventilated or under the influence. Pt ambulating, talking and drinking prior to DC. - Diagnoses Differential Diagnosis/HQI/PQRI: Positive: Drug Withdrawal, Metabolic Disorder, Known Seizure Disorder Provider Diagnoses: Altered mental status - Physician Notifications Discussed Care of Patient With: Thony Gonzales Instructed by Provider To: Have Pt Call For Appt. - will see Dr. Mtz outpatient Discharge ED - Sign-Out/Discharge Documenting (check all that apply): Patient Departure - Discharge Plan Condition: Stable Disposition: HOME Prescriptions: carBAMazepine TAB(*) [TEGretol TAB(*)] 200 mg PO BID #60 tab Referrals: Leti Hdz NP [Primary Care Provider] - Fausto Oneill [Nurse Practitioner] - Additional Instructions: Please follow up with Fausto Oneill NP Tegretol twice daily Continue lamictal for now Call neuro office tomorrow for follow up - Billing Disposition and Condition Condition: STABLE Disposition: Home - Attestation Statements Provider Attestation: I was available for consult. This patient was seen by the [facility]. The patient was not presented to, seen by, or examined by me. Mariano Ann MD
[2019-02-12 18:21] VITALS: BP 146/115
== END 2019-02-12 18:15 | disposition home or self-care (01) ==
LOC: ED 15:35
DX: R41.82 Altered mental status, unspecified (principal); G40.909 Epilepsy, unspecified, not intractable, without status epilepticus; F41.0 Panic disorder [episodic paroxysmal anxiety]; Z88.1 Allergy status to other antibiotic agents; Z88.0 Allergy status to penicillin; Z88.2 Allergy status to sulfonamides; Z88.8 Allergy status to other drugs, medicaments and biological substances
CPT/HCPCS: 36415; 70450; 80053; 80175; 80307; 80320; 81003; 82550; 83605; 83735; 85025; 85610; 99284; A9270-GY; G0480